=== PATIENT | female | born 1955 | race Caucasian/White ===

== ENCOUNTER → 2024-01-09 10:47 | Outpatient (REF) | payer MEDICARE, OTHER, SELFPAY | LOC: HWWDC 10:47 | PROVIDERS: ATTENDING PHYSICIAN Nurse Practitioner Family | DX: Z12.31 Encounter for screening mammogram for malignant neoplasm of breast (principal) | CPT/HCPCS: 77063; 77067 ==

== ENCOUNTER → 2024-01-12 10:06 | Outpatient (REF) | payer MEDICARE, OTHER, SELFPAY ==
[2024-01-12 11:15] LABS: % Basophils 0.9 % (0-2); % Eosinophils 3.2 % (0-6); % Neutrophils 53.9 % (42.2-75.2); Absolute Basophils 0.1 10^3/uL (0-0.2); Absolute Eosinophils 0.2 10^3/uL (0-0.7); Absolute Lymphocytes 1.9 10^3/uL (1.2-3.4); Absolute Monocytes 0.5 10^3/uL (0.1-0.6); Hematocrit 42.8 % (37.0-47.0); Hemoglobin 14.4 g/dL (12.0-16.0); Mean Corp Hgb Conc. 33.6 g/dL (33.0-37.0); Mean Corpuscular Hgb 31.3 pg (27.0-31.0); Mean Platelet Volume 9.8 fL (7.4-10.4); Nucleated Red Blood Cells % 0 %; Platelet Count 248 10^3/uL (130-400); Red Cell Dist. Width 13.5 % (11.5-14.5); White Blood Cell Count 5.6 10^3/uL (4.8-10.8)
[2024-01-12 12:03] LABS: ALT (SGPT) 23 U/L (0-35); AST (SGOT) 27 U/L (14-36); Albumin 4.5 g/dl (3.5-5.0); Alkaline Phosphatase 51 U/L (38-126); Blood Urea Nitrogen 16 mg/dl (7-17); Carbon Dioxide 31 mmol/L (22-30); Chloride 101 mmol/L (98-107); Glucose 90 mg/dl (70-99); HDL Cholesterol 64 mg/dl; LDL Cholesterol, Calculated 104 mg/dl; Sodium 141 mmol/L (135-145); Total Bilirubin 0.7 mg/dl (0.2-1.3); Total Cholesterol 187 mg/dl (50-199); Triglyceride 99 mg/dl (10-149); Very Low Density Lipoprotein 19 mg/dl (0-30); eGFR > 60.00
[2024-01-12 12:31] LABS: TSH Reflex To Free T4 3.13 uIU/ml (0.47-4.68)
== END ==
LOC: REG 10:06
PROVIDERS: ATTENDING PHYSICIAN Nurse Practitioner Family
DX: Z00.00 Encounter for general adult medical examination without abnormal findings (principal); E78.5 Hyperlipidemia, unspecified
CPT/HCPCS: 36415; 80053; 80061; 84443; 85025

== ENCOUNTER → 2024-12-24 18:37 | Outpatient (REF) | payer MEDICARE, OTHER, SELFPAY | LOC: MRI 3T 18:37 | PROVIDERS: ATTENDING PHYSICIAN Physician Assistant Surgical; PRIMARYCARE PHYSICIAN Family Medicine | DX: M25.551 Pain in right hip (principal); M54.50 Low back pain, unspecified | CPT/HCPCS: 72148 ==

== ENCOUNTER 2025-01-10 06:12 | Day surgery (SDC) | payer MEDICARE, OTHER, SELFPAY ==
[2025-01-10] VITALS (12 sets, daily range): BP systolic 102–131; BP diastolic 75–86; BMI 22.2
[2025-01-10] MEDS: NORMOSOL-R/PLASMALYTE-A 1000 IV (09:19)
--- NOTE | 2025-01-10 12:32 | OR.RPT ---
Operative Report
Operative Report
Patient name: Bhavani Knight
Date of : 1955

Date of operation: 01/10/2025
Preoperative diagnosis: Soft palate lesion
Postoperative diagnosis: Soft palate lesion
Operation/procedures performed: Excision soft palate lesion with primary closure
Surgeon: Luisito Edwards DO
Anesthesia: General, ETT
Anesthesiologist: Frank
Surgical Indications: This is a 69-year-old woman with a left soft palate lesion found incidentally by her dentist at a routine dental cleaning. Lesion has been stable in size with no pain or growth. No associated systemic symptoms or adenopathy.
The risks benefits and alternatives to observation with serial exams versus excision with primary closure were discussed with the patient. Recommendation was made for diagnostic and therapeutic excision in the operating room and the patient
provided informed written consent after ample time was given for all questions.
Details of Procedure: The patient was met in the preoperative holding area where all questions were answered and informed written consent was reviewed. The patient was brought back to the operating room and transferred supine on the operating room
table. General anesthesia was induced after the patient was secured with safety straps and SCDs were attached. The patient was intubated orotracheally without difficulty by the anesthesia team and the tube was secured to the midline lower lip.
The table was rotated 90 degrees away from anesthesia. A surgical timeout was performed confirming the necessary perioperative information. A Edson Ike mouth retractor was then placed and the left soft palate lesion was visualized. 1 cm lateral
and a few millimeter superior to the base of the uvula was a lesion on the soft palate approximately 3 to 4 mm in diameter and consistent in appearance grossly with a papilloma. The base of the lesion was injected with approximately 2 cc of 1%
lidocaine with epinephrine 1 100,000. After adequate time for anesthesia, a Bovie monopolar cautery with a protected spatula tip setting of 25 cup and 25 coag was used to excise the lesion in an ellipse fashion with a 2 mm cuff of mucosa along the
perimeter. Hemostasis was confirmed and he excised area was closed primarily using 3-0 Vicryl suture in a simple fashion x 2. The oropharynx was irrigated and suctioned out. An OG tube was passed to decompress the stomach of any potential
contents. This concluded the procedure. The patient tolerated well. The table was rotated back to the anesthesia team where they emerged safely from anesthesia and were extubated without difficulty. The patient was brought safely to the PACU in
stable condition.
Complications:None immediately present
Blood loss: 1cc
Disposition: Stable to PACU followed by discharge to home
== END 2025-01-10 12:58 | disposition home or self-care (01) ==
LOC: SDS 06:12
PROVIDERS: ATTENDING PHYSICIAN Student in an Organized Health Care Education/Training Program
DX: D10.39 Benign neoplasm of other parts of mouth (principal)
CPT/HCPCS: 42104; 88305

== ENCOUNTER → 2025-01-18 08:51 | Outpatient (REF) | payer MEDICARE, OTHER, SELFPAY ==
[2025-01-18 09:26] LABS: Hematocrit 42.6 % (37.0-47.0); Hemoglobin 14.3 g/dL (12.0-16.0); Mean Corp Hgb Conc. 33.6 g/dL (33.0-37.0); Mean Corpuscular Volume 94.2 fL (81.0-99.0); Nucleated Red Blood Cells % 0 %; Platelet Count 257 10^3/uL (130-400); Red Cell Dist. Width 13.1 % (11.5-14.5)
[2025-01-18 09:51] LABS: ALT (SGPT) 21 U/L (0-35); AST (SGOT) 23 U/L (14-36); Albumin 4.4 g/dl (3.5-5.0); Alkaline Phosphatase 47 U/L (38-126); Blood Urea Nitrogen 14 mg/dl (7-17); Calcium 9.6 mg/dl (8.4-10.2); Carbon Dioxide 30 mmol/L (22-30); Chloride 104 mmol/L (98-107); Glucose 99 mg/dl (70-99); HDL Cholesterol 54 mg/dl; LDL Cholesterol, Calculated 94 mg/dl; Potassium 4.7 mmol/L (3.5-5.1); Sodium 137 mmol/L (135-145); Total Protein 7.1 g/dl (6.3-8.2); Very Low Density Lipoprotein 19 mg/dl (0-30); eGFR > 60.00
== END ==
LOC: REG 08:51
PROVIDERS: ATTENDING PHYSICIAN Family Medicine
DX: E78.5 Hyperlipidemia, unspecified (principal); M79.10 Myalgia, unspecified site; I10 Essential (primary) hypertension
CPT/HCPCS: 36415; 80053; 80061; 84443; 85025